=== PATIENT | female | born 1975 | race Caucasian/White ===

== ENCOUNTER 2021-03-13 13:34 | Emergency (ER) | payer OTHER ==
[~2021-03-13] VITALS: Ht 162.6 cm; Wt 49.0 kg
[2021-03-13 14:21] VITALS: BP_SYST 126
[2021-03-13 14:48] LABS: BILIRUBIN,URINE NEGATIVE (NEGATIVE); BLOOD, URINE 2+ (NEGATIVE); CLARITY/URINE CLEAR (CLEAR); COLOR,URINE YELLOW (YELLOW); GLUCOSE,URINE NEGATIVE (NEGATIVE); KETONES,URINE TRACE (NEGATIVE); LEUKOCYTE ESTERASE ,URINE NEGATIVE (NEGATIVE); NITRITE, URINE NEGATIVE (NEGATIVE); PROTEIN URINE TRACE (NEGATIVE); UROBILINOGEN,URINE 0.2 (0.2-1.0)
[2021-03-13 14:57] LABS: BASOPHILS % (AUTO) 0.1 % (0.0-2.0); HEMATOCRIT 43.2 % (36-48); HEMOGLOBIN 14.5 g/dL (12.0-16.0); LYMPHOCYTES # (AUTO) 0.5 K/uL (1.0-5.5); LYMPHOCYTES % (AUTO) 8.5 % (20.5-51.5); MEAN CORPUSCULAR HEMOGLOBIN 30 pg (27-31); MEAN CORPUSCULAR HGB CONC 34 % (32-36); MEAN CORPUSCULAR VOLUME 90 fL (79.0-98.0); MONOCYTES # (AUTO) 0.4 K/uL (0.0-1.0); MONOCYTES % (AUTO) 6.3 % (1.7-9.3); NEUTROPHILS # (AUTO) 4.9 K/uL (1.8-7.7); NEUTROPHILS % (AUTO) 85.1 % (40.0-70.0); PLATELET COUNT (AUTO) 168 K/uL (130-430); RED BLOOD CELL COUNT(AUTO) 4.82 MIL/uL (4.2-6.2); RED CELL DISTRIBUTION WIDTH 17.2 % (9.0-15.0); WHITE BLOOD COUNT (AUTO) 5.7 K/uL (4.8-10.8)
[2021-03-13 15:13] LABS: BACTERIA,URINE FEW /HPF (None Seen); MUCUS,URINE 1+ /LPF (None Seen); RBC,URINE 0-3 /HPF (0-3)
[2021-03-13 15:16] LABS: CALCIUM 8.2 mg/dL (8.4-11.0); CREATININE 0.77 mg/dL (0.55-1.30); POTASSIUM 3.2 mmol/L (3.5-5.1); PROTHROMBIN TIME 10.4 SECS (9.5-12.5)
[2021-03-13 15:20] LABS: ALBUMIN 3.7 g/dL (3.4-4.8); TOTAL BILIRUBIN 0.5 mg/dL (0.0-1.0)
[2021-03-13] MEDS ORDERED: cefTRIAXone 1 GM in LIDOCAINE 1%, 20 ML MDV 2.1 ML IM ONE (15:30)
[2021-03-13] MEDS ORDERED: KETOROLAC TROMETHAMINE 60 MG/2 ML VIAL IM ONE (17:00)
[2021-03-13] MEDS ORDERED: HYDR-3917 PO (17:03)
[2021-03-13] MEDS ORDERED: IBUP-1969 PO (17:03)
[2021-03-13 18:32] VITALS: BP_SYST 132
== END 2021-03-13 18:33 | disposition home or self-care (01) ==
LOC: SED 13:34
DX: D25.9 Leiomyoma of uterus, unspecified (principal); N83.202 Unspecified ovarian cyst, left side; N83.201 Unspecified ovarian cyst, right side; N39.0 Urinary tract infection, site not specified; N20.0 Calculus of kidney; E87.6 Hypokalemia; Z79.899 Other long term (current) drug therapy
CPT/HCPCS: 36415; 74176; 76376; 76830; 76857; 80053; 81000; 81025; 83690; 85025; 85610; 87086; 96372; 99284; J0696; J2001

== ENCOUNTER 2022-12-26 16:27 | Emergency (ER) | payer MEDICAID, OTHER ==
[~2022-12-26] VITALS: Ht 157.5 cm; Wt 52.2 kg
[~2022-12-26 16:27] MED LIST: HYDR-3917 PO; IBUP-1969 PO
[2022-12-26 16:36] VITALS: BP_SYST 134; PULSE 111; RESP 18; TEMP 100.1; TEMP 98.3; O2SAT 98
[2022-12-26 16:59] VITALS: TEMP 100.1
[2022-12-26] MEDS ORDERED: NACL 0.9% 1,000 ML IV ONE ×2 (17:15→19:15)
[2022-12-26] MEDS ORDERED: KETOROLAC TROMETHAMINE 30 MG VIAL IVP ONE (17:15)
[2022-12-26] MEDS ORDERED: ONDANSETRON HCL 4 MG/2 ML VIAL IVP ONE (17:15)
[2022-12-26] MEDS ORDERED: ACETAMINOPHEN 325 MG TABLET PO ONE (17:15)
[2022-12-26 17:37] LABS: BASOPHILS % (AUTO) 0.3 % (0.0-2.0); HEMATOCRIT 41.4 % (36-48); HEMOGLOBIN 13.5 g/dL (12.0-16.0); LYMPHOCYTES # (AUTO) 0.2 K/uL (1.0-5.5); LYMPHOCYTES % (AUTO) 1.9 % (20.5-51.5); MEAN CORPUSCULAR HEMOGLOBIN 29 pg (27-31); MEAN CORPUSCULAR HGB CONC 33 % (32-36); MEAN CORPUSCULAR VOLUME 88 fL (79.0-98.0); MONOCYTES # (AUTO) 0.6 K/uL (0.0-1.0); MONOCYTES % (AUTO) 5.8 % (1.7-9.3); NEUTROPHILS # (AUTO) 8.7 K/uL (1.8-7.7); PLATELET COUNT (AUTO) 228 K/uL (130-430); RED BLOOD CELL COUNT(AUTO) 4.72 MIL/uL (4.2-6.2); RED CELL DISTRIBUTION WIDTH 14.5 % (9.0-15.0); WHITE BLOOD COUNT (AUTO) 9.5 K/uL (4.8-10.8)
[2022-12-26 17:54] LABS: ALBUMIN 3.9 g/dL (3.4-4.8); ANION GAP 11 (5-15); ASPARTATE AMINOTRANSFERASE 15 U/L (10-37); CALCIUM 8.6 mg/dL (8.4-11.0); CARBON DIOXIDE 22 mmol/L (23-29); CHLORIDE 99 mmol/L (98-107); GFR AFRICAN AMERICAN 170 mL/min (>90); GFR NON AFRICAN-AMERICAN 141 mL/min (>90); GLUCOSE 121 mg/dL (74-106); SODIUM SERUM 132 mmol/L (136-145); TOTAL BILIRUBIN 0.6 mg/dL (0.0-1.0); TOTAL PROTEIN, SERUM 7.5 g/dL (6.4-8.3); UREA NITROGEN, BLOOD 12 mg/dL (8-21)
[2022-12-26 18:08] LABS: ALANINE AMINOTRANSFERASE 10 U/L (12-78)
[2022-12-26 18:17] LABS: CLARITY/URINE SLIGHTLY HAZY (CLEAR); COLOR,URINE YELLOW (YELLOW); PH,URINE >=9.0 (5.0-8.0); PROTEIN URINE 1+ (NEGATIVE)
[2022-12-26 18:18] LABS: BILIRUBIN,URINE NEGATIVE (NEGATIVE); BLOOD, URINE TRACE (NEGATIVE); GLUCOSE,URINE NEGATIVE (NEGATIVE); KETONES,URINE 3+ (NEGATIVE); LEUKOCYTE ESTERASE ,URINE TRACE (NEGATIVE); NITRITE, URINE NEGATIVE (NEGATIVE); UROBILINOGEN,URINE 0.2 (0.2-1.0)
[2022-12-26 18:35] LABS: BACTERIA,URINE FEW /HPF (None Seen)
[2022-12-26 18:36] LABS: MUCUS,URINE 3+ /LPF (None Seen)
[2022-12-26] MEDS ORDERED: cefTRIAXone 1 GM in D5W 50 ML IV ONE (18:45)
[2022-12-26] MEDS ORDERED: cefTRIAXone 1 GM VIAL ONE (18:46)
[2022-12-26] MEDS ORDERED: POTASSIUM CHLORIDE 20 MEQ TAB.PRT.SR PO ONE (19:00)
[2022-12-26] MEDS ORDERED: METOCLOPRAMIDE HCL 10 MG/2 ML VIAL IVP ONE (19:15)
[2022-12-26] MEDS ORDERED: DIPHENHYDRAMINE INJ 50 MG/ML VIAL IVP ONE (19:15)
[2022-12-26] MEDS ORDERED: IBUP-1971 PO (21:57)
[2022-12-26] MEDS ORDERED: SULF1TAB48 PO (21:57)
[2022-12-26] MEDS ORDERED: ONDA-8 TL (21:57)
[2022-12-26 22:04] VITALS: BP_SYST 128; PULSE 106; RESP 17; O2SAT 97
== END 2022-12-26 22:04 | disposition home or self-care (01) ==
LOC: SED 16:27
DX: N39.0 Urinary tract infection, site not specified (principal); Z16.30 Resistance to unspecified antimicrobial drugs; R11.10 Vomiting, unspecified; R50.9 Fever, unspecified; R53.1 Weakness; Z79.899 Other long term (current) drug therapy
CPT/HCPCS: 99285; 96365; 96375; 71045; 96361; 80053; 81000; 85025; 87040; 87086; 84484; 36415; 93005; 83605; J0696; J1200; J1885; J2765; J2405; J7030

== ENCOUNTER 2022-12-29 21:02 | Emergency (ER) | payer MEDICAID ==
[~2022-12-29] VITALS: Ht 157.5 cm; Wt 54.0 kg
[~2022-12-29 21:02] MED LIST changes: +IBUP-1971 PO; +ONDA-8 TL; +SULF1TAB48 PO
[2022-12-29 21:24] VITALS: BP_SYST 160; PULSE 114; RESP 20; TEMP 97.4; O2SAT 95
[2022-12-29 22:01] LABS: BILIRUBIN,URINE NEGATIVE (NEGATIVE); BLOOD, URINE 2+ (NEGATIVE); CLARITY/URINE CLEAR (CLEAR); COLOR,URINE YELLOW (YELLOW); GLUCOSE,URINE NEGATIVE (NEGATIVE); KETONES,URINE NEGATIVE (NEGATIVE); LEUKOCYTE ESTERASE ,URINE TRACE (NEGATIVE); NITRITE, URINE NEGATIVE (NEGATIVE); PH,URINE 6.5 (5.0-8.0); PROTEIN URINE NEGATIVE (NEGATIVE); UROBILINOGEN,URINE 0.2 (0.2-1.0)
[2022-12-29 22:02] LABS: BACTERIA,URINE RARE /HPF (None Seen); MUCUS,URINE None Seen /LPF (None Seen); RBC,URINE NONE SEEN /HPF (0-3)
[2022-12-29 22:11] LABS: HEMOGLOBIN 12.9 g/dL (12.0-16.0); MEAN CORPUSCULAR HEMOGLOBIN 29 pg (27-31); MEAN CORPUSCULAR HGB CONC 33 % (32-36); MEAN CORPUSCULAR VOLUME 88 fL (79.0-98.0); PLATELET COUNT (AUTO) 207 K/uL (130-430); RED BLOOD CELL COUNT(AUTO) 4.45 MIL/uL (4.2-6.2); RED CELL DISTRIBUTION WIDTH 14.9 % (9.0-15.0); WHITE BLOOD COUNT (AUTO) 3.6 K/uL (4.8-10.8)
[2022-12-29 22:20] LABS: CALCIUM 8.5 mg/dL (8.4-11.0); CREATININE 0.68 mg/dL (0.55-1.30); POTASSIUM 3.6 mmol/L (3.5-5.1)
[2022-12-29 22:30] LABS: ALBUMIN 3.7 g/dL (3.4-4.8); TOTAL BILIRUBIN 0.2 mg/dL (0.0-1.0); TOTAL PROTEIN, SERUM 7.3 g/dL (6.4-8.3)
[2022-12-29 23:00] LABS: ATYPICAL LYMPHOCYTES % 1 % (0-0); BAND % (MANUAL) 2 % (0-6); BASOPHILS % (MANUAL) 0 % (0-2); EOSINOPHILS % (MANUAL) 1 % (0-7); LYMPHOCYTES % (MANUAL) 13 % (20-46); MONOCYTES % (MANUAL) 9 % (0-11)
[2022-12-29 23:01] LABS: PLATELET ESTIMATE ADEQUATE (ADEQUATE)
[2022-12-29 23:34] VITALS: BP_SYST 123; PULSE 75; RESP 18; TEMP 97.4; O2SAT 98
== END 2022-12-29 23:34 | disposition home or self-care (01) ==
LOC: SED 21:02
DX: R31.9 Hematuria, unspecified (principal); Z79.899 Other long term (current) drug therapy
CPT/HCPCS: 36415; 80053; 81000; 81025; 85007; 85027; 99283

== ENCOUNTER 2023-08-30 18:49 | Emergency (ER) | payer MEDICAID, OTHER ==
[~2023-08-30] VITALS: Ht 157.5 cm; Wt 56.7 kg
[2023-08-30 19:07] VITALS: BP_SYST 157; PULSE 80; RESP 18; TEMP 98; O2SAT 99
[2023-08-30] MEDS ORDERED: KETOROLAC TROMETHAMINE 30 MG VIAL IM ONE (19:15)
[2023-08-30] MEDS: KETOROLAC TROMETHAMINE 60 MG/2 ML VIAL IM ONE (19:40)
[2023-08-30] MEDS ORDERED: DICL75TA5 PO (21:01)
[2023-08-30] MEDS ORDERED: DICL20GE TP (21:01)
[2023-08-30 21:06] VITALS: BP_SYST 157; PULSE 80; RESP 18; TEMP 98; O2SAT 99
== END 2023-08-30 21:06 | disposition home or self-care (01) ==
LOC: SED 18:49
DX: S16.1XXA Strain of muscle, fascia and tendon at neck level, initial encounter (principal); R51.9 Headache, unspecified; Z79.899 Other long term (current) drug therapy; X58.XXXA Exposure to other specified factors, initial encounter; Y93.89 Activity, other specified; Y92.89 Other specified places as the place of occurrence of the external cause; Y99.8 Other external cause status
CPT/HCPCS: 99285; 70450; 72125; 81025; 96372; J1885

== ENCOUNTER 2023-09-23 17:50 | Emergency (ER) | payer OTHER ==
[~2023-09-23] VITALS: Ht 157.5 cm; Wt 68.0 kg
[~2023-09-23 17:50] MED LIST changes: +DICL20GE TP; +DICL75TA5 PO
[2023-09-23 18:36] VITALS: BP_SYST 130; PULSE 80; RESP 16; TEMP 97.5; O2SAT 97
[2023-09-23] MEDS: NACL 0.9% 1,000 ML IV ONE (23:16)
[2023-09-23] MEDS: ONDANSETRON HCL 4 MG/2 ML VIAL IVP ONE (23:17)
[2023-09-23] MEDS: KETOROLAC TROMETHAMINE 30 MG VIAL IVP ONE (23:17)
[2023-09-24 00:03] LABS: HEMOGLOBIN 13.2 g/dL (12.0-16.0)
[2023-09-24 00:09] LABS: BASOPHILS % (AUTO) 0.3 % (0.0-2.0); EOSINOPHILS % (AUTO) 0.2 % (0.0-4.0); HEMATOCRIT 40.1 % (36-48); LYMPHOCYTES # (AUTO) 1.2 K/uL (1.0-5.5); LYMPHOCYTES % (AUTO) 17.5 % (20.5-51.5); MEAN CORPUSCULAR HEMOGLOBIN 27 pg (27-31); MEAN CORPUSCULAR HGB CONC 33 % (32-36); MEAN CORPUSCULAR VOLUME 82 fL (79.0-98.0); MONOCYTES # (AUTO) 0.5 K/uL (0.0-1.0); MONOCYTES % (AUTO) 7.4 % (1.7-9.3); NEUTROPHILS # (AUTO) 5.2 K/uL (1.8-7.7); NEUTROPHILS % (AUTO) 74.6 % (40.0-70.0); PLATELET COUNT (AUTO) 240 K/uL (130-430); RED BLOOD CELL COUNT(AUTO) 4.88 MIL/uL (4.2-6.2); RED CELL DISTRIBUTION WIDTH 21.7 % (9.0-15.0)
[2023-09-24 00:13] LABS: BILIRUBIN,URINE NEGATIVE (NEGATIVE); COLOR,URINE YELLOW (YELLOW); GLUCOSE,URINE NEGATIVE (NEGATIVE); KETONES,URINE 2+ (NEGATIVE); LEUKOCYTE ESTERASE ,URINE NEGATIVE (NEGATIVE); NITRITE, URINE NEGATIVE (NEGATIVE); PROTEIN URINE NEGATIVE (NEGATIVE); UROBILINOGEN,URINE 0.2 (0.2-1.0)
[2023-09-24 00:21] LABS: ALBUMIN 4.2 g/dL (3.4-4.8); BILIRUBIN,DIRECT 0.2 mg/dL (0.0-0.3); CALCIUM 9.2 mg/dL (8.4-11.0); CREATININE 0.56 mg/dL (0.55-1.30); POTASSIUM 3.3 mmol/L (3.5-5.1); TOTAL BILIRUBIN 1.4 mg/dL (0.0-1.0); TOTAL PROTEIN, SERUM 8.3 g/dL (6.4-8.3)
[2023-09-24 00:31] LABS: BLOOD, URINE 1+ (NEGATIVE); CLARITY/URINE HAZY (CLEAR)
[2023-09-24 00:32] LABS: BACTERIA,URINE RARE /HPF (None Seen); MUCUS,URINE 1+ /LPF (None Seen)
[2023-09-24] MEDS: cefTRIAXone 1 GM IVPB PREMIX 50 ML IV ONE (01:38)
[2023-09-24] MEDS ORDERED: CIPR500T5 PO (02:03)
[2023-09-24] MEDS ORDERED: NAPR-1172 PO (02:03)
[2023-09-24 02:11] VITALS: BP_SYST 137; PULSE 78; RESP 19; TEMP 98.2; O2SAT 98
[2023-09-24] MEDS ORDERED: ONDA-8 TL (02:23)
== END 2023-09-24 02:10 | disposition home or self-care (01) ==
LOC: SED 17:50
DX: N39.0 Urinary tract infection, site not specified (principal); R51.9 Headache, unspecified; Z88.5 Allergy status to narcotic agent; Z79.899 Other long term (current) drug therapy; Z79.2 Long term (current) use of antibiotics
CPT/HCPCS: 99285; 70450; 96375; 96361; 80076; 80048; 81001; 85025; 87040; 36415; 81025; 83605; 96365; J1885; J2405; J7030; J0696; 81000; 81015

== ENCOUNTER 2023-12-22 03:08 | Emergency (ER) | payer OTHER ==
[~2023-12-22] VITALS: Ht 157.5 cm; Wt 55.3 kg
[~2023-12-22 03:08] MED LIST changes: +CIPR500T5 PO; +NAPR-1172 PO
[2023-12-22 03:16] VITALS: BP_SYST 126; PULSE 85; RESP 18; TEMP 98.6; O2SAT 99
[2023-12-22] MEDS: PROCHLORPERAZINE EDISYLATE 10 MG/2 ML VIAL IM ONE (03:54)
[2023-12-22] MEDS: KETOROLAC TROMETHAMINE 30 MG VIAL IM ONE (03:55)
[2023-12-22 04:16] LABS: BILIRUBIN,URINE NEGATIVE (NEGATIVE); BLOOD, URINE 3+ (NEGATIVE); CLARITY/URINE CLOUDY (CLEAR); GLUCOSE,URINE NEGATIVE (NEGATIVE); KETONES,URINE TRACE (NEGATIVE); LEUKOCYTE ESTERASE ,URINE NEGATIVE (NEGATIVE); NITRITE, URINE NEGATIVE (NEGATIVE); PH,URINE 7.5 (5.0-8.0); PROTEIN URINE 1+ (NEGATIVE); UROBILINOGEN,URINE 0.2 (0.2-1.0)
[2023-12-22 04:31] LABS: COLOR,URINE YELLOW (YELLOW)
[2023-12-22 04:32] LABS: BACTERIA,URINE FEW /HPF (None Seen); RBC,URINE 50-80 /HPF (0-3); WBC,URINE 0-3 /HPF (0-3)
[2023-12-22 04:33] LABS: URINE AMORPHOUS PHOSPHATES 1+ /HPF (None Seen)
[2023-12-22] MEDS ORDERED: METO-290 PO (04:40)
[2023-12-22] MEDS ORDERED: NAPR-690 PO (04:40)
[2023-12-22] MEDS ORDERED: METH-634 PO (04:40)
[2023-12-22 04:45] VITALS: BP_SYST 126; PULSE 85; RESP 18; TEMP 98.6; O2SAT 99
== END 2023-12-22 04:45 | disposition home or self-care (01) ==
LOC: SED 03:08
DX: G44.209 Tension-type headache, unspecified, not intractable (principal); R11.0 Nausea; Z88.5 Allergy status to narcotic agent
CPT/HCPCS: 99284; 81001; 81025; 96372; 81000; 81015; J1885; J0780